=== PATIENT | male | born 1990 | race Caucasian/White ===

== ENCOUNTER 2018-05-01 20:07 | Emergency (ER) | payer OTHER ==
[~2018-05-01] VITALS: Ht 170.2 cm; Wt 77.1 kg
[2018-05-01] MEDS ORDERED: HYZAAR 100-12.1 EACH PO (20:15)
[2018-05-04] MEDS ORDERED: BENADRYL25 MG PO (06:36)
[2018-05-04] MEDS ORDERED: MEDROL4 MG PO (06:36)
== END 2018-05-01 21:50 | disposition home or self-care (01) ==
LOC: ER 20:07 → EDBD 20:11 → ER 21:50
DX: J02.8 Acute pharyngitis due to other specified organisms (principal); B34.9 Viral infection, unspecified

== ENCOUNTER → 2018-05-04 | Emergency (ER) | payer OTHER ==
[~2018-05-04] VITALS: Ht 180.3 cm; Wt 111.1 kg
[~2018-05-04] MED LIST: BENADRYL25 MG PO; HYZAAR 100-12.1 EACH PO; MEDROL4 MG PO
== END | disposition home or self-care (01) ==
LOC: ER 04:07
DX: R21 Rash and other nonspecific skin eruption (principal); R19.7 Diarrhea, unspecified

== ENCOUNTER 2018-06-11 23:45 | Emergency (ER) | payer OTHER ==
[~2018-06-11] VITALS: Ht 180.3 cm; Wt 108.9 kg
== END 2018-06-12 | disposition left against medical advice (07) ==
LOC: ER 23:45
DX: Z53.20 Procedure and treatment not carried out because of patient's decision for unspecified reasons (principal)